=== PATIENT | male | born 2000 | race American Indian/Alaskan Native ===

== ENCOUNTER 2020-07-18 01:51 | Emergency (ER) | payer OTHER ==
--- NOTE | 2020-07-18 02:04 | EDM.PDOC ---
ED HPI GENERAL MEDICAL PROBLEM - General Chief Complaint: Upper Extremity Injury/Pain Stated Complaint: RIGHT SHOULDER POSSIBLY DISLOCATED Time Seen by Provider: 07/18/20 01:51 Source of Information: Reports: Patient History Limitations: Reports: No Limitations - History of Present Illness INITIAL COMMENTS - FREE TEXT/NARRATIVE: This 20 yo male patient reports to the ED with right shoulder pain due to a fall. The patient reports he fell about 1 hour prior to his arrival in the ED. The patient reports increased pain to his right shoulder and the inability to lift his arm above his head. The patient admits to drinking alcohol this evening. Onset: Today Duration: Minutes:, Constant Location: Reports: Upper Extremity, Right Quality: Reports: Ache, Sharp, Stabbing Severity: Moderate Improves with: Reports: Rest Worsens with: Reports: Movement Context: Reports: Activity (ground level fall) Associated Symptoms: Reports: No Other Symptoms Right Shoulder Pain Score (Numeric/FACES): 9 - Related Data Allergies Allergy/AdvReac Type Severity Reaction Status Date / Time No Known Allergies Allergy Verified 07/18/20 02:06 Home Meds: Home Meds . [No Known Home Meds] 02/03/15 [History] Past Medical History - Past Health History Medical/Surgical History: Denies Medical/Surgical History - Infectious Disease History Infectious Disease History: Reports: Chicken Pox Review of Systems - Review of Systems Review Of Systems: Comprehensive ROS is negative, except as noted in HPI. ED EXAM, GENERAL - Physical Exam Exam: See Below Exam Limited By: No Limitations General Appearance: Alert, WD/WN, Moderate Distress Eye Exam: Bilateral Eye: EOMI, Normal Inspection, PERRL Ears: Normal External Exam, Normal Canal, Hearing Grossly Normal, Normal TMs Nose: Normal Inspection, Normal Mucosa, No Blood Throat/Mouth: Normal Inspection, Normal Lips, Normal Teeth, Normal Gums, Normal Oropharynx, Normal Voice, No Airway Compromise Head: Atraumatic Neck: Normal Inspection, Supple, Non-Tender, Full Range of Motion Respiratory/Chest: No Respiratory Distress Cardiovascular: Normal Peripheral Pulses, Regular Rate, Rhythm, No Edema, No Gallop, No JVD, No Murmur, No Rub GI/Abdominal: Normal Bowel Sounds, Soft, Non-Tender, No Organomegaly, No Distention, No Abnormal Bruit, No Mass (Male) Exam: Deferred Rectal (Males) Exam: Deferred Back Exam: Normal Inspection, Full Range of Motion, NT Extremities: Arm Pain (right arm and schoulder pain. The patient has deformity of his right mid clavicle. ) Neurological: Alert, Oriented, CN II-XII Intact, Normal Cognition, Normal Gait, Normal Reflexes Psychiatric: Normal Affect, Normal Mood Skin Exam: Warm, Dry, Intact, Normal Color, No Rash Lymphatic: No Adenopathy Course - Vital Signs Last Recorded V/S: Last Vital Signs Temp 37.2 C 07/18/20 02:00 Pulse 88 07/18/20 02:00 Resp 18 07/18/20 02:00 BP 139/44 L 07/18/20 02:00 Pulse Ox 95 07/18/20 02:00 - Orders/Labs/Meds Orders: Active Orders 24 hr Category Date Time Status Clavicle Rt [CR] Urgent Exams 07/18/20 01:59 Taken Shoulder Comp Rt [CR] Urgent Exams 07/18/20 01:54 Taken DME for Discharge [COMM] Urgent Oth 07/18/20 02:04 Ordered Departure - Departure Time of Disposition: 02:51 Disposition: Home, Self-Care 01 Condition: Fair Clinical Impression: Closed right clavicular fracture Qualifiers: Encounter type: initial encounter Clavicle location: shaft Fracture alignment: displaced Qualified Code(s): S42.021A - Displaced fracture of shaft of right clavicle, initial encounter for closed fracture - Discharge Information *PRESCRIPTION DRUG MONITORING PROGRAM REVIEWED*: Not Applicable *COPY OF PRESCRIPTION DRUG MONITORING REPORT IN PATIENT RONNIE: Not Applicable Instructions: Clavicle Fracture, [id number], How To Use a Sling, [id number] Forms: ED Department Discharge Care Plan Goals: The patient was advised of the examination and x-ray results during the visit. The patient was placed in a right shoulder immobilizer. The patient was advised to rest and ice the area. The patient should follow-up with his primary care facility next week for continued evaluation and further management. The patient may take Tylenol or ibuprofen for temporary symptom relief. If the patient has any additional symptoms or concerns, the patient should visit his primary care facility or return to the emergency department. Sepsis Event Note (ED) - Focused Exam Vital Signs: Vital Signs Temp Pulse Resp BP Pulse Ox 07/18/20 02:00 37.2 C 88 18 139/44 L 95 - My Orders Last 24 Hours: My Active Orders 07/18/20 01:54 Shoulder Comp Rt [CR] Urgent 07/18/20 01:59 Clavicle Rt [CR] Urgent 07/18/20 02:04 DME for Discharge [COMM] Urgent - Assessment/Plan Last 24 Hours: My Active Orders 07/18/20 01:54 Shoulder Comp Rt [CR] Urgent 07/18/20 01:59 Clavicle Rt [CR] Urgent 07/18/20 02:04 DME for Discharge [COMM] Urgent
[2020-07-18 02:06] VITALS: BP 139/44; PULSE 88
--- NOTE | 2020-07-18 02:50 | CR ---
PROCEDURE INFORMATION: Exam: XR Right Shoulder Exam date and time: 07/18/2020 1:55 AM Age: 20 years old Clinical indication: Pain; Shoulder; Right; Additional info: Right shoulder pain TECHNIQUE: Imaging protocol: XR Right shoulder. Views: 2 or more views. COMPARISON: No relevant prior studies available. FINDINGS: Bones/joints: Features suggest a medial right clavicle fracture with mild displacement. This is approximately 4 cm proximal to the sternoclavicular joint. AC joint is unremarkable. Right upper ribs are normal. Scapula and proximal humerus are normal. Pleural space: No evidence of right pneumothorax by this limited evaluation. Soft tissues: Normal. IMPRESSION: Medial right clavicle fracture. Minor displacement.
--- NOTE | 2020-07-18 02:50 | CR ---
PROCEDURE INFORMATION: Exam: XR Right Clavicle, Complete Exam date and time: 07/18/2020 2:06 AM Age: 20 years old Clinical indication: Pain; Shoulder; Right; Additional info: Right shoulder pain TECHNIQUE: Imaging protocol: XR Right clavicle complete. Any number of views. COMPARISON: CR Chest 1V Frontal 07/17/2016 6:50 AM FINDINGS: Bones/joints: Medial right clavicle fracture. Suggestion of minor comminution and minor displacement. This is approximately 4 centimetres proximal from the sternoclavicular joint. No definable sternoclavicular joint dislocation. Distal clavicle is normal. AC joint intact. Soft tissues: Normal. IMPRESSION: Medial right clavicle fracture as described above.
== END 2020-07-18 03:32 | disposition home or self-care (01) ==
LOC: DL.ED 01:51
DX: S42.021A Displaced fracture of shaft of right clavicle, initial encounter for closed fracture (principal); W19.XXXA Unspecified fall, initial encounter
CPT/HCPCS: 73000-RT; 73030-RT; 99283